=== PATIENT | male | born 2000 | race Two or more races ===

== ENCOUNTER 2019-11-21 17:49 | Emergency (ER) | payer SELFPAY ==
[~2019-11-21] VITALS: Ht 172.7 cm; Wt 79.5 kg
[2019-11-21 22:45] VITALS: BP 119/76
== END 2019-11-21 21:30 | disposition home or self-care (01) ==
LOC: EMS 17:51
DX: F41.9 Anxiety disorder, unspecified (principal); J02.9 Acute pharyngitis, unspecified; Z88.1 Allergy status to other antibiotic agents